=== PATIENT | male | born 2000 | race Caucasian/White ===

== ENCOUNTER 2021-10-13 09:19 | Outpatient (CLI) | payer OTHER, SELFPAY ==
--- NOTE | 2021-10-13 | US_ITS ---
WS: [id number] Scrotal and testicular ultrasound, 10/13/2021 Clinical Data: RIGHT TESTICULAR PAIN Comparison: Scrotal and testicular ultrasound, 07/05/2013. Findings: The right testes measures 4.9 cm x 2.9 cm x 2.2 cm. The left testes measures 4.7 cm x 2.8 cm x 2.2 cm. There is normal bilateral blood flow with no evidence of orchitis or torsion. No masses or abnormal c alcifications are noted. The right epididymis showed increased blood flow and slight enlargement. The left epididymis was norm al. US/US scrotum [id number] Impression: 1. Right epididymitis. 2. Negative for orchitis or testicular torsion.
== END 2021-10-13 09:20 | disposition home or self-care (01) ==
LOC: RADOUTREAD 10-14 09:24
PROVIDERS: Visit Provider Nurse Practitioner Family
DX: N50.811 Right testicular pain (principal); N45.1 Epididymitis
CPT/HCPCS: 76870

== ENCOUNTER 2023-05-22 10:35 | Emergency (ER) | payer OTHER, SELFPAY ==
[2023-05-22 10:44] VITALS: BP 156/91; PULSE 76; RESP 16; TEMP 36.7; O2SAT 99; BMI 22.4
--- NOTE | 2023-05-22 11:05 | ED_ITS ---
HPI - Eye Problem General: Chief complaint: Eye Problems Stated complaint: something in right eye Time Seen by Provider: 05/22/23 10:40 Source: patient Mode of arrival: ambulatory Limitations: no limitations History of Present Illness: 22-year-old male states he is working on a car 2 nights ago states he fell he got a piece of metal in his right eye has been having eye pain since then. Denies any vision changes states pain is worse with bright lights rates his pain a 6 out of 10 denies any other injuries. Associated symptoms: Denies fever(s), headache(s), nausea, neck pain or vomiting Review of Systems Const: Denies: fever(s), chills, body aches or change in appetite Eyes: Reports: eye discomfort ENMT: Denies: throat pain or dental pain Card: Denies: chest pain Resp: Denies: dyspnea GI: Denies: abdominal pain, nausea, vomiting or diarrhea Musc: Denies: neck pain or back pain Skin/Breast: Denies: rash Neuro: Denies: headache(s) PFSH ED PFSH: Social History Smoking and tobacco/nicotine status: current every day tobacco/nicotine user smokeless tobacco Physical Exam Const: COMMON NORMALS: no acute distress, patient oriented x3 and healthy melita earing HENMT: COMMON NORMALS: normocephalic and atraumatic HEAD & SCALP: normocephalic and atraumatic Eye: OTHER: Piece of metal noted to right cornea Neck/C-Spine: COMMON NORMALS: full ROM and supple Chest: COMMONS NORMALS: normal inspection of the chest and normal palpation of entire chest wall Resp: COMMON NORMALS: normal respiratory effort Cardio: COMMON NORMALS: regular rate, regular rhythm and No murmurs present (Cardio) RATE: regular rate RHYTHM: regular rhythm Extremity: COMMON NORMALS: normal to inspection and full ROM Neuro: COMMON NORMALS: patient oriented x3, moves all extremities and no focal motor deficits Psych: COMMON NORMALS: mental status grossly normal, Normal thought process present and cooperative THOUGHT PROCESS: Normal thought process present Skin: COMMON NORMALS: no rashes or lesions noted and no wounds GENERAL SKIN EXAM: no rashes or lesions noted Procedures FB Removal Eye Time Out performed: Yes Location: eye (R) Topical anesthetic used: tetracaine Foreign body: metal Evidence of corneal penetration: No Technique: irrigation and cotton tip swab Procedure performed under: direct visualization with magnification Post-procedure medication: topical anesthetic Patient tolerated procedure: well Course Vital Signs: Vital signs: Vital Signs Temperature 98.1 F 05/22/23 10:44 Pulse Rate 76 05/22/23 10:44 Respiratory Rate 16 05/22/23 10:44 Blood Pressure 156/91 05/22/23 10:44 Pulse Oximetry 99 05/22/23 10:44 Oxygen Delivery Me thod Room Air 05/22/23 10:44 MDM - Eye Problem Medical Decision Making Patient presents for foreign body to right eye was able to remove the foreign body will place on erythromycin is follow-up to ophthalmology return if worsening. Medical Records I reviewed the patient's medical records. No radiology studies performed this visit Discharge Plan Discharge Patient Disposition: Home Clinical Impression: Foreign body in cornea, right eye, initial encounter Condition: Stable Prescriptions: New erythromycin 5 mg/gram (0.5 %) ointment 1 applic ophthalmic (eye) Q6H 5 Days Qty: 3.5 0RF Discharge Orders: Discharge ED (Routine); Ordered 05/22/23 Ordered By: Jessica Benitez Referrals: Joey Quintana [Physician] - 1-3 days Discharge Diet: Advance as tolerated Discharge Activity: Resume usual activity Patient Instructions: Foreign Body - Eye Coding Level of Care Code ED Central Sterilization Technician for Sahra Benton
[2023-05-22] MEDS: tetracaine 0.5% Op Soln 4 mL Btl 1 DROP EYE-BOTH (11:10)
[2023-05-22] MEDS: fluorescein 1 mg Strip EYE-BOTH (11:10)
== END 2023-05-22 11:23 | disposition home or self-care (01) ==
PROVIDERS: Emergency Provider Emergency Medicine
DX: T15.01XA Foreign body in cornea, right eye, initial encounter (principal); W44.D0XA Magnetic metal object unspecified, entering into or through a natural orifice, initial encounter; F17.220 Nicotine dependence, chewing tobacco, uncomplicated
CPT/HCPCS: 65220; 99283

== ENCOUNTER 2023-09-06 15:36 | Outpatient (CLI) | payer OTHER, SELFPAY ==
--- NOTE | 2023-09-06 15:45 | XRR_ITS ---
PROCEDURE INFORMATION: Exam: XR Thoracic Spine Exam date and time: 09/06/2023 3:49 PM Age: 23 years old Clinical indication: Mass, lump or swelling; Pain in thoracic spine; Additional info: M54.9 - dorsalgia, unspecified TECHNIQUE: Imaging protocol: Radiologic exam of the thoracic spine. Views: 3 views. COMPARISON: CR XR chest 2V* [id number] 09/06/2023 3:49 PM FINDINGS: Bones/joints: Normal. No acute fracture. Normal alignment. Soft tissues: Unremarkable. XR/XR thoracic spine 3V* [id number] IMPRESSION: No acute findings.
--- NOTE | 2023-09-06 15:45 | XRR_ITS ---
PROCEDURE INFORMATION: Exam: XR Chest Exam date and time: 09/06/2023 3:49 PM Age: 23 years old Clinical indication: Pain; Pleuordynia; Additional info: R07.81 - pleurodynia TECHNIQUE: Imaging protocol: Radiologic exam of the chest. Views: 2 views. COMPARISON: CR XR thoracic spine 3V* [id number] 09/06/2023 3:49 PM FINDINGS: Lungs: Unremarkable. No consolidation. Pleural spaces: Unremarkable. No pleural effusion. No pneumothorax. Heart/Mediastinum: Unremarkable. No cardiomegaly. Bones/joints: Unremarkable. XR/XR chest 2V* [id number] IMPRESSION: No acute findings.
== END 2023-09-06 15:37 | disposition home or self-care (01) ==
PROVIDERS: PCP Nurse Practitioner Family; Visit Provider Nurse Practitioner Family
DX: R07.81 Pleurodynia (principal); M54.9 Dorsalgia, unspecified
CPT/HCPCS: 71046; 72072